=== PATIENT | male | born 1990 | race Caucasian/White ===

== ENCOUNTER 2017-02-18 12:56 | Emergency (ER) | payer OTHER ==
[2017-02-18 13:01] VITALS: BP 117/79
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
--- NOTE | 2017-02-18 14:22 | RADIOLOGY REPORT ---
EXAMINATIONS: RIGHT ANKLE 3 VIEWS AND RIGHT TIB/FIB 2 VIEWS AND RIGHT FOOT 3 VIEWS CLINICAL INFORMATION: Right tib-fib, foot and ankle pain following injury. COMPARISON: None. TECHNIQUE: AP, lateral, oblique views of the right ankle were obtained. AP and lateral views of the right tib-fib are provided. AP, lateral, oblique views of the right foot are provided. FINDINGS: There is soft tissue swelling overlying the lateral aspect of the foot at the level of the fifth MTP joint. There is also soft tissue swelling overlying the medial malleolus along with a soft tissue defect consistent with a laceration. There is no ankle joint effusion. There is an oblique comminuted proximal right fibular fracture. No tibial fractures identified. There is no knee joint effusion. IMPRESSION: Proximal right fibular fracture. Soft tissue swelling about the ankle and foot.
[2017-02-18] MEDS ORDERED: PERCOCET 5-3251 EACH PO (15:39)
[2017-02-18] MEDS ORDERED: IBUPROFEN800 M1 PO (15:39)
[2017-02-18] MEDS ORDERED: DOXYCYCLINE HY100 M4 PO (16:04)
== END 2017-02-18 15:52 ==
LOC: ERH 12:56
DX: S82.831A Other fracture of upper and lower end of right fibula, initial encounter for closed fracture (principal); S91.011A Laceration without foreign body, right ankle, initial encounter; V03.00XA Pedestrian on foot injured in collision with car, pick-up truck or van in nontraffic accident, initial encounter; Y92.89 Other specified places as the place of occurrence of the external cause; Y93.9 Activity, unspecified
CPT/HCPCS: 73590-RT; 73610-RT; 73630-RT